=== PATIENT | female | born 1955 | race Two or more races ===

== ENCOUNTER 2024-09-13 12:19 | Outpatient (CLI) | payer OTHER | END 2024-09-13 12:20 | disposition home or self-care (01) | LOC: NUCLEAR 12:19 | PROVIDERS: ATTEND Internal Medicine Cardiovascular Disease | DX: I87.2 Venous insufficiency (chronic) (peripheral) (principal) ==

== ENCOUNTER 2024-09-26 08:01 | Outpatient (CLI) | payer OTHER | END 2024-09-26 08:02 | disposition home or self-care (01) | LOC: NUCLEAR 08:01 | PROVIDERS: ATTEND Internal Medicine Cardiovascular Disease | DX: I73.9 Peripheral vascular disease, unspecified (principal) ==

== ENCOUNTER 2025-06-13 13:03 | Outpatient (CLI) | payer OTHER | END 2025-06-13 13:10 | disposition home or self-care (01) | LOC: MAMO-SONO 13:03 | PROVIDERS: ATTEND Internal Medicine Cardiovascular Disease | DX: N60.11 Diffuse cystic mastopathy of right breast (principal); N60.12 Diffuse cystic mastopathy of left breast; Z12.31 Encounter for screening mammogram for malignant neoplasm of breast ==